=== PATIENT | male | born 1955 | race Caucasian/White ===

== ENCOUNTER → 2017-12-05 | Outpatient (CLI) | payer OTHER ==
--- NOTE | 2017-12-05 12:48 | DIAGNOSTIC IMAGING REPORT ---
L-SPINE MIN 4 VIEWS ROUTINE CLINICAL HISTORY: FALL back pain COMPARISON STUDY: No previous studies for comparison. FINDINGS: There are left upper quadrant sutures, likely related to a prior gastric bypass. There are postsurgical changes of a prior cholecystectomy. There are postsurgical changes of a discectomy and interbody fusion at the L4-5 level. There is posterior pedicle screw fixation. There are no acute fractures or subluxations. There is moderate disc space narrowing at the L5-S1 level. IMPRESSION: Postsurgical changes. No fractures or subluxations identified. Electronically signed by: Noam Kearns M.D. 12/05/2017 12:47 PM Dictated Date/Time: 12/05/2017 12:46 PM
== END | disposition home or self-care (01) ==
LOC: C.RAD1850 11:59
PROVIDERS: ATTEND Nurse Practitioner Family
DX: S39.92XA Unspecified injury of lower back, initial encounter (principal); M54.81 Occipital neuralgia; W19.XXXA Unspecified fall, initial encounter; Y99.0 Civilian activity done for income or pay; Z98.1 Arthrodesis status

== ENCOUNTER → 2017-12-18 | Outpatient (CLI) | payer OTHER ==
[2017-12-18 15:44] LABS: BLOOD UREA NITROGEN 11 mg/dl (7-18); CREATININE 0.74 mg/dl (0.60-1.40)
== END | disposition home or self-care (01) ==
LOC: C.LAB1850 14:10
PROVIDERS: ATTEND Nurse Practitioner Family
DX: Z01.818 Encounter for other preprocedural examination (principal); M54.5 Low back pain